=== PATIENT | male | born 1980 | race Caucasian/White ===

== ENCOUNTER 2022-09-14 08:47 | Outpatient (RCR) | payer BC | END 2022-09-16 | LOC: PT 08:47 | PROVIDERS: ATTEND Specialist | DX: S86.012A Strain of left Achilles tendon, initial encounter (principal) ==

== ENCOUNTER 2022-10-05 09:00 | Outpatient (RCR) | payer BC | END 2022-10-17 | LOC: PT 09:00 | PROVIDERS: ATTEND Specialist | DX: S86.012A Strain of left Achilles tendon, initial encounter (principal); M25.672 Stiffness of left ankle, not elsewhere classified; R26.2 Difficulty in walking, not elsewhere classified; M62.81 Muscle weakness (generalized) ==